=== PATIENT | male | born 1990 | race African-American/Black ===

== ENCOUNTER 2019-11-18 16:40 | Emergency (ER) | payer SELFPAY ==
--- NOTE | 2019-11-18 17:48 | ER ---
Nurse's Notes [facility] Name: Aftab Pedraza Age: 29 yrs Sex: Male : 1990 Arrival Date: 11/18/2019 Time: 16:43 Bed 13 Private MD: Diagnosis: Influenza due to certain identified influenza viruses Presentation: 11/18 16:50 Presenting complaint: Patient states: Fever, chills, body aches, dizziness, cough and sg blurred vision for about 1 week per pt mother, pt reports has not had an appetite and has been vomiting for 1 day. Transition of care: patient was not received from another setting of care. Onset of symptoms was November 18, 2019. Risk Assessment: Do you want to hurt yourself or someone else? Patient reports no desire to harm self or others. Initial Sepsis Screen: Does the patient meet any 2 criteria? HR > 90 bpm. Does the patient have a suspected source of infection? No. Patient's initial sepsis screen is negative. Care prior to arrival: None. 16:50 Method Of Arrival: Ambulatory sg 16:50 Acuity: DIGNA 3 sg Historical: - Allergies: 16:50 NKDA; sg - Home Meds: 16:50 None [Active]; sg - PMHx: 16:50 None; sg - PSHx: 16:50 None; sg - Immunization history:: Adult Immunizations up to date. - Social history:: Smoking status: Patient uses tobacco products, smokes two packs cigarettes per day. - Ebola Screening: : Patient negative for fever greater than or equal to 101.5 degrees Fahrenheit, and additional compatible Ebola Virus Disease symptoms Patient denies exposure to infectious person Patient denies travel to an Ebola-affected area in the 21 days before illness onset No symptoms or risks identified at this time. Screenin:00 Abuse screen: Denies threats or abuse. Denies injuries from another. Nutritional ca1 screening: No deficits noted. Tuberculosis screening: No symptoms or risk factors identified. Fall Risk None identified. Assessment: 17:00 General: Appears in no apparent distress. comfortable, Behavior is calm, cooperative, ca1 appropriate for age. General: Reports chills for fever for feeling ill for > 3 days. Pain: Complains of pain in all over Pain currently is 7 out of 10 on a pain scale. Pain began 2-3 days ago. Neuro: Level of Consciousness is awake, alert, obeys commands, Oriented to person, place, time, situation, Appropriate for age. Cardiovascular: Heart tones S1 S2 present Capillary refill < 3 seconds Patient's skin is warm and dry. Respiratory: Reports cough that is since 2-4 days Airway is patent Respiratory effort is even, unlabored, Respiratory pattern is regular, symmetrical, Breath sounds are clear bilaterally. GI: Abdomen is round non-distended, Bowel sounds present X 4 quads. Abd is soft and non tender X 4 quads. Reports diarrhea, nausea, vomiting. : No deficits noted. No signs and/or symptoms were reported regarding the genitourinary system. EENT: No deficits noted. No signs and/or symptoms were reported regarding the EENT system. Derm: Skin is intact, is healthy with good turgor, Skin is pink, warm \T\ dry. Musculoskeletal: Circulation, motion, and sensation intact. Capillary refill < 3 seconds, Range of motion: intact in all extremities. 17:52 Reassessment: Patient appears in no apparent distress at this time. Patient is alert, ca1 oriented x 3, equal unlabored respirations, skin warm/dry/pink. Vital Signs: 16:49 BP 131 / 96; Pulse 108; Resp 18; Temp 99.1; Pulse Ox 98% on R/A; Weight 131.54 kg; sg Height 6 ft. 1 in. (185.42 cm); Pain 6/10; 17:52 BP 141 / 81; Pulse 80; Resp 17 S; Pulse Ox 98% on R/A; ca1 16:49 Body Mass Index 38.26 (131.54 kg, 185.42 cm) sg Visual Acuity: 17:11 Left Eye Visual acuity 20/20, ; Right Eye Visual acuity 20/20, ; Both Eyes Visual ca1 acuity 20/20; Without Lenses; ED Course: 16:43 Patient arrived in ED. mr 16:49 Arm band placed on. sg 16:51 Triage completed. sg 16:53 Yesenia Stuart FNP-C [facility]. kb 16:53 Luis Miguel MD is Attending Physician. kb 17:00 No provider procedures requiring assistance completed. ca1 17:02 Supriya Dial, BEKAH is Primary Nurse. ca1 17:02 Flu Sent. [facility] 17:03 Patient has correct armband on for positive identification. Bed in low position. Call [facility] light in reach. Adult w/ patient. 17:03 Flu and/or RSV swab sent to lab. [facility] 17:43 Chest Pa And Lat (2 Views) XRAY In Process Unspecified. EDMS 17:54 Patient did not have IV access during this emergency room visit. 17:54 Patient did not have IV access during this emergency room visit. ca1 Administered Medications: No medications were administered Outcome: 17:47 Discharge ordered by . kb 17:54 Discharged to home ambulatory, with family. 17:54 Condition: stable 17:54 Discharge instructions given to patient, family, Instructed on discharge instructions, follow up and referral plans. medication usage, Demonstrated understanding of instructions, follow-up care, medications. 17:55 Patient left the ED. Signatures: Dispatcher [employer] EDIN Yesenia Stuart, AUTOMOBI[employer] BRAKES BONDER-C AUTOMOBILE BRAKES BONDER-Ckb Minor Lara, RN Kimber Tom Bess Meadows RN RN hb Martinez, Maria [facility] Supriya Dial RN RN ca1
--- NOTE | 2019-11-18 17:48 | EDPHYS ---
Physician Documentation [facility] Name: Aftab Pderaza Age: 29 yrs Sex: Male : 1990 Arrival Date: 11/18/2019 Time: 16:43 Bed 13 Private MD: ED Physician Luis Miguel HPI: 11/18 17:36 This 29 yrs old Black Male presents to ER via Ambulatory with complaints of Cough, kb Fever, Headache, Vision Problem, Dizziness. 17:36 The patient or guardian reports cough, flu symptoms, low-grade fever, myalgias. Onset: kb The symptoms/episode began/occurred 3 day(s) ago. Severity of symptoms: At their worst the symptoms were moderate, in the emergency department the symptoms are unchanged. Modifying factors: The symptoms are alleviated by nothing, the symptoms are aggravated by nothing. Associated signs and symptoms: Pertinent positives: fever, rhinorrhea, sore throat. The patient has not experienced similar symptoms in the past. The patient has not recently seen a physician. Historical: - Allergies: 16:50 NKDA; sg - Home Meds: 16:50 None [Active]; sg - PMHx: 16:50 None; sg - PSHx: 16:50 None; sg - Immunization history:: Adult Immunizations up to date. - Social history:: Smoking status: Patient uses tobacco products, smokes two packs cigarettes per day. - Ebola Screening: : Patient negative for fever greater than or equal to 101.5 degrees Fahrenheit, and additional compatible Ebola Virus Disease symptoms Patient denies exposure to infectious person Patient denies travel to an Ebola-affected area in the 21 days before illness onset No symptoms or risks identified at this time. ROS: 17:35 Neck: Negative for injury, pain, and swelling, Cardiovascular: Negative for chest pain, kb palpitations, and edema, Abdomen/GI: Negative for abdominal pain, nausea, vomiting, diarrhea, and constipation, Back: Negative for injury and pain, MS/Extremity: Negative for injury and deformity, Skin: Negative for injury, rash, and discoloration, Neuro: Negative for headache, weakness, numbness, tingling, and seizure. 17:35 Constitutional: Positive for body aches, chills, fatigue, fever, malaise. 17:35 ENT: Positive for rhinorrhea, sinus congestion. 17:35 Respiratory: Positive for cough, Negative for dyspnea on exertion, hemoptysis, orthopnea, pleurisy, shortness of breath, sputum production, wheezing. Exam: 17:35 Constitutional: This is a well developed, well nourished patient who is awake, alert, kb and in no acute distress. Head/Face: Normocephalic, atraumatic. Neck: Trachea midline, no thyromegaly or masses palpated, and no cervical lymphadenopathy. Supple, full range of motion without nuchal rigidity, or vertebral point tenderness. No Meningismus. Chest/axilla: Normal chest wall appearance and motion. Nontender with no deformity. No lesions are appreciated. Cardiovascular: Regular rate and rhythm with a normal S1 and S2. No gallops, murmurs, or rubs. Normal PMI, no JVD. No pulse deficits. Respiratory: Lungs have equal breath sounds bilaterally, clear to auscultation and percussion. No rales, rhonchi or wheezes noted. No increased work of breathing, no retractions or nasal flaring. Abdomen/GI: Soft, non-tender, with normal bowel sounds. No distension or tympany. No guarding or rebound. No evidence of tenderness throughout. Skin: Warm, dry with normal turgor. Normal color with no rashes, no lesions, and no evidence of cellulitis. MS/ Extremity: Pulses equal, no cyanosis. Neurovascular intact. Full, normal range of motion. Neuro: Awake and alert, GCS 15, oriented to person, place, time, and situation. Cranial nerves II-XII grossly intact. Motor strength 5/5 in all extremities. Sensory grossly intact. Cerebellar exam normal. Normal gait. 17:35 ENT: External ear(s): are unremarkable, Ear canal(s): are normal, TM's: are normal, Nose: is normal, Mouth: is normal, Posterior pharynx: Airway: normal, no evidence of obstruction, Tonsils: are normal in appearance, Uvula: normal, midline, erythema, that is mild. Vital Signs: 16:49 BP 131 / 96; Pulse 108; Resp 18; Temp 99.1; Pulse Ox 98% on R/A; Weight 131.54 kg; sg Height 6 ft. 1 in. (185.42 cm); Pain 6/10; 17:52 BP 141 / 81; Pulse 80; Resp 17 S; Pulse Ox 98% on R/A; ca1 16:49 Body Mass Index 38.26 (131.54 kg, 185.42 cm) Visual Acuity: 17:11 Left Eye Visual acuity 20/20, ; Right Eye Visual acuity 20/20, ; Both Eyes Visual ca1 acuity 20/20; Without Lenses; MDM: 16:53 Patient medically screened. kb 17:35 Data reviewed: vital signs, nurses notes. Data interpreted: Pulse oximetry: on room air kb is 98 %. Interpretation: normal. Counseling: I had a detailed discussion with the patient and/or guardian regarding: the historical points, exam findings, and any diagnostic results supporting the discharge/admit diagnosis, lab results, radiology results, the need for outpatient follow up, a family practitioner, to return to the emergency department if symptoms worsen or persist or if there are any questions or concerns that arise at home. 11/18 16:53 Order name: Flu; Complete Time: 17:32 kb 11/18 17:04 Order name: Strep; Complete Time: 17:46 kb 11/18 16:53 Order name: Visual Acuity; Complete Time: 17:16 kb 11/18 17:04 Order name: Chest Pa And Lat (2 Views) XRAY kb Administered Medications: No medications were administered Disposition: 11/18/19 17:47 Discharged to Home. Impression: Influenza due to certain identified influenza viruses. - Condition is Stable. - Discharge Instructions: Influenza, Adult, [id number]. - Medication Reconciliation Form, Thank You Letter, Antibiotic Education, Prescription Opioid Use, Work release form form. - Follow up: Emergency Department; When: As needed; Reason: Worsening of condition. Follow up: Private Physician; When: 2 - 3 days; Reason: Recheck today's complaints, Continuance of care, Re-evaluation by your physician. Addendum: 11/25/2019 07:25 Co-signature as Attending Physician, Luis Miguel MD I agree with the assessment and c sneed plan of care. Signatures: Dispatcher [employer] Yesenia Carrizales, VENEER CUTTER-C CAYLA-Minor [place] RN RN Luis Goel MD MD cha Baxter, Heather, BEKAH RN Corrections: (The following items were deleted from the chart) 11/18 17:55 17:47 11/18/2019 17:47 Discharged to Home. Impression: Influenza due to certain hb identified influenza viruses. Condition is Stable. Forms are Medication Reconciliation Form, Thank You Letter, Antibiotic Education, Prescription Opioid Use. Follow up: Emergency Department; When: As needed; Reason: Worsening of condition. Follow up: Private Physician; When: 2 - 3 days; Reason: Recheck today's complaints, Continuance of care, Re-evaluation by your physician. kb
--- NOTE | 2019-11-18 17:55 | RAD REPORT ---
EXAM DESCRIPTION: Hong Armstrong And Chele (2 Views)11/18/2019 5:41 pm CLINICAL HISTORY: Cough COMPARISON: None FINDINGS: 14 millimeter medial right lower lobe opacity Left lung appears clear The heart is normal size IMPRESSION: 14 millimeter medial right lower lobe opacity. This may represent a mild pneumonia. Fol low-up chest film in a couple weeks recommended for re-evaluation
[2019-11-18 18:21] VITALS: TEMP 99.1; O2SAT 98
[2019-11-18 18:22] VITALS: BP 141/81
== END 2019-11-18 17:55 | disposition home or self-care (01) ==
LOC: ER 16:40
DX: J10.1 Influenza due to other identified influenza virus with other respiratory manifestations (principal); F17.210 Nicotine dependence, cigarettes, uncomplicated
CPT/HCPCS: 71046; 87070; 87081; 87804; 99283

== ENCOUNTER 2020-04-19 12:43 | Emergency (ER) | payer SELFPAY ==
--- NOTE | 2020-04-19 13:46 | RAD REPORT ---
EXAM DESCRIPTION: RAD - Wrist Right 3 View - 04/19/2020 1:24 pm CLINICAL HISTORY: Right wrist pain status post injury FINDINGS: No fracture or dislocation is seen. If the patient continues to have symptoms to suggest a n occult fracture then a followup plain film series in 7 days would be recommended.
[2020-04-19 13:56] VITALS: BP 134/85; TEMP 97.6; O2SAT 96
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
== END 2020-04-19 13:45 | disposition home or self-care (01) ==
LOC: ER 12:43
DX: S63.501A Unspecified sprain of right wrist, initial encounter (principal); W50.0XXA Accidental hit or strike by another person, initial encounter; Y93.9 Activity, unspecified; Y92.9 Unspecified place or not applicable; F17.210 Nicotine dependence, cigarettes, uncomplicated
CPT/HCPCS: 99284

== ENCOUNTER 2021-07-16 14:52 | Emergency (ER) | payer SELFPAY ==
[2021-07-16 16:10] LABS: Basophils % 0.9 % (0-1.3); MPV 7.9 fL (7.6-11.3)
[2021-07-16 16:26] LABS: Absolute Lymphocytes (CBC) 1.7 K/uL (0.7-4.9); Hematocrit 45.2 % (39.6-49.0); Lymphocytes % 25.9 % (15.3-44.8); RBC Red Blood Cell Count 5.81 M/uL (4.33-5.43)
[2021-07-16 16:29] LABS: Protime INR 0.95
[2021-07-16 16:31] LABS: ALT/SGPT 53 U/L (12-78); AST/SGOT 26 U/L (15-37); Albumin 3.8 g/dL (3.4-5.0); Alkaline Phosphatase 75 U/L (45-117); BUN Blood Urea Nitrogen 17 mg/dL (7-18); Bicarbonate 28 mmol/L (21-32); Bilirubin Direct 0.1 mg/dL (0-0.2); Bilirubin Total 0.5 mg/dL (0.2-1.0); Creatine Phosphokinase 406 U/L (39-308); Glucose Level 97 mg/dL (74-106); NT PRO-BNP 20 pg/mL (<125); Potassium 4.1 mmol/L (3.5-5.1); Sodium Level 140 mmol/L (136-145); Troponin (Emerg Dept Use Only) < 0.02 ng/mL (0.0-0.045)
--- NOTE | 2021-07-16 16:47 | RAD REPORT ---
EXAM DESCRIPTION: Hong Single View07/16/2021 4:32 pm CLINICAL HISTORY: Weakness/ fatigue COMPARISON: 2019 FINDINGS: The lungs appear clear of acute infiltrate. The heart is normal size. Left lateral costop hrenic sulcus is not entirely included in the field view and is not evaluated IMPRESSION: No acute abnormalities displayed
[2021-07-16] MEDS ORDERED: NA CHLORIDE 0.9% 1,000 ML ONE (16:49)
--- NOTE | 2021-07-16 18:12 | EDPHYS ---
Physician Documentation [facility] Name: Aftab Pedraza Age: 30 yrs Sex: Male : 1990 Arrival Date: 07/16/2021 Time: 15:04 Bed 16 Private MD: ED Physician Vipul Cardenas HPI: 07/16 15:19 This 30 yrs old Black Male presents to ER via Unassigned with complaints of back pain, jmm cramping. 15:19 The patient presents with abdominal pain that is diffuse. Onset: The symptoms/episode jmm began/occurred just prior to arrival. The symptoms do not radiate. Associated signs and symptoms: Pertinent positives: nausea and vomiting. The symptoms are described as achy, crampy. Modifying factors: The symptoms are alleviated by nothing, the symptoms are aggravated by nothing. This is a 30-year-old male with a history of hypertension that presents emerge department with complaints of generalized muscle cramping, abdominal pain, nausea. Patient was outside at work when this occurred. Patient also states he is concerned he may have coronavirus due to exposure to coworker.. Historical: - Immunization history:: Client reports having NOT received the Covid vaccine. - Social history:: Smoking status: unknown. ROS: 15:19 Cardiovascular: Negative for chest pain, palpitations, and edema, Respiratory: Negative jmm for shortness of breath, cough, wheezing, and pleuritic chest pain. 15:19 Constitutional: Positive for body aches, fatigue. 15:19 Abdomen/GI: Positive for nausea. 15:19 Back: Positive for pain with movement. 15:19 All other systems are negative. Exam: 15:19 Constitutional: This is a well developed, well nourished patient who is awake, alert, jmm and in no acute distress. Head/Face: atraumatic. Eyes: EOMI, no conjunctival erythema appreciated ENT: Moist Mucus Membranes Neck: Trachea midline, Supple Chest/axilla: Normal chest wall appearance and motion. 15:19 Back: Normal ROM Skin: General appearance color normal MS/ Extremity: Moves all extremities, no obvious deformities appreciated, no edema noted to the lower extremities Neuro: Awake and alert, normal gait 15:19 Cardiovascular: Rate: normal, Rhythm: regular. 15:19 Respiratory: the patient does not display signs of respiratory distress, Respirations: normal, Breath sounds: are clear throughout. 15:19 Abdomen/GI: Inspection: obese Bowel sounds: normal, Palpation: soft, mild abdominal tenderness, in all quadrants. Vital Signs: 16:20 BP 156 / 66; Pulse 94; Resp 18; Temp 96.5; Pulse Ox 100% ; Weight 145.15 kg; Height 6 aj2 ft. 1 in. (185.42 cm); 16:20 Body Mass Index 42.22 (145.15 kg, 185.42 cm) aj2 MDM: 15:11 Patient medically screened. [facility] 18:10 Data reviewed: vital signs, nurses notes. Counseling: I had a detailed discussion with jimenez the patient and/or guardian regarding: the historical points, exam findings, and any diagnostic results supporting the discharge/admit diagnosis, lab results, the need for outpatient follow up, to return to the emergency department if symptoms worsen or persist or if there are any questions or concerns that arise at home. ED course: Patient is alert and nontoxic in appearance in the ER. I discussed all labs and imaging studies with the patient. Patient will follow up with their primary care provider. Patient understood and agrees with plan of care.. 07/16 15:18 Order name: Basic Metabolic Panel [facility] 07/16 15:18 Order name: CBC with Diff [facility] 07/16 15:18 Order name: LFT's [facility] 07/16 15:18 Order name: Magnesium [facility] 07/16 15:18 Order name: NT PRO-BNP [facility] 07/16 15:18 Order name: PT-INR [facility] 07/16 15:18 Order name: Troponin (emerg Dept Use Only) [facility] 07/16 15:18 Order name: CPK [facility] 07/16 15:18 Order name: Basic Metabolic Panel; Complete Time: 16:32 [facility] 07/16 15:18 Order name: CBC with Automated Diff; Complete Time: 16:33 [facility] 07/16 15:19 Order name: Liver (Hepatic) Function; Complete Time: 16:32 [facility] 07/16 15:19 Order name: Magnesium; Complete Time: 16:32 [facility] 07/16 15:19 Order name: NT PRO-BNP; Complete Time: 16:32 [facility] 07/16 15:18 Order name: XRAY Chest (1 view); Complete Time: 16:50 [facility] 07/16 15:18 Order name: EKG; Complete Time: 15:19 [facility] 07/16 15:18 Order name: Cardiac monitoring; Complete Time: 15:53 [facility] 07/16 15:18 Order name: EKG - Nurse/Tech; Complete Time: 15:53 [facility] 07/16 15:18 Order name: IV Saline Lock; Complete Time: 16:04 [facility] 07/16 15:18 Order name: Labs collected and sent; Complete Time: 16:04 [facility] 07/16 15:18 Order name: O2 Per Protocol; Complete Time: 15:53 [facility] 07/16 15:18 Order name: O2 Sat Monitoring; Complete Time: 15:53 [facility] 07/16 15:19 Order name: Protime (+INR); Complete Time: 16:35 [facility] 07/16 15:19 Order name: Troponin (Emerg Dept Use Only); Complete Time: 16:32 [facility] 07/16 15:19 Order name: Creatine Phosphokinase; Complete Time: 16:32 [facility] 07/16 18:11 Order name: SARS-COV-2 RT PCR; Complete Time: 18:11 EDMS Administered Medications: 16:00 Drug: NS 0.9% 1000 ml Route: IV; Rate: 1 bolus; Site: left antecubital; zb Disposition Summary: 07/16/21 18:11 Discharge Ordered Location: Home [facility] Condition: Stable [facility] Diagnosis - Dehydration [facility] Followup: jm - With: Private Physician - When: 2 - 3 days - Reason: Recheck today's complaints, Continuance of care, Re-evaluation by your physician Discharge Instructions: - Discharge Summary Sheet jm - Dehydration, Adult jm - Heat Exhaustion [facility] Forms: - Medication Reconciliation Form [facility] - Thank You Letter [facility] - Antibiotic Education jmm - Prescription Opioid Use [facility] Signatures: Dispatcher [employer] EDMS Tono Shafer PA PA jmm Brown, Zipporah, RN RN Amari Velasco Corrections: (The following items were deleted from the chart) 16:31 15:18 CBC with Automated Diff ordered. EDMS EDMS 17:02 15:19 CORONAVIRUS+MR.LAB.BRZ ordered. EDMS EDMS
--- NOTE | 2021-07-16 18:12 | ER ---
Nurse's Notes [facility] Name: Aftab Pedraza Age: 30 yrs Sex: Male : 1990 Arrival Date: 07/16/2021 Time: 15:04 Bed 16 Private MD: Diagnosis: Dehydration Presentation: 07/16 15:15 Onset of symptoms is unknown. ss 15:15 Acuity: DIGNA 3 ss 15:27 Chief complaint: Patient states: Patient request COVID testing. Reports he was exposed aj2 to droplets from an unknown person. Denies any other concerns \T\ thi s time. Coronavirus screen: Vaccine status: Patient reports being unvaccinated. Ebola Screen: No symptoms or risks identified at this time. Initial Sepsis Screen: Does the patient meet any 2 criteria? No. Patient's initial sepsis screen is negative. Does the patient have a suspected source of infection?. Risk Assessment: Do you want to hurt yourself or someone else? Patient reports no desire to harm self or others. 15:27 Method Of Arrival: Law Enforcement: Ramon HIGGINS aj2 Triage Assessment: 15:27 General: Appears in no apparent distress. well groomed, well nourished, Behavior is aj2 calm, uncooperative. Historical: - Immunization history:: Client reports having NOT received the Covid vaccine. - Social history:: Smoking status: unknown. Screenin:25 Abuse screen: Denies threats or abuse. Denies injuries from another. Nutritional aj2 screening: No deficits noted. Tuberculosis screening: No symptoms or risk factors identified. Fall Risk None identified. Assessment: 15:25 Pain: Denies pain. aj2 Vital Signs: 16:20 BP 156 / 66; Pulse 94; Resp 18; Temp 96.5; Pulse Ox 100% ; Weight 145.15 kg; Height 6 aj2 ft. 1 in. (185.42 cm); 16:20 Body Mass Index 42.22 (145.15 kg, 185.42 cm) aj2 ED Course: 15:04 Patient arrived in ED. tr6 15:08 Tono Shafer PA is PHCP. [facility] 15:08 Vipul Cardenas MD is Attending Physician. [facility] 15:24 Amari Mcpherson is Primary Nurse. aj2 15:25 No provider procedures requiring assistance completed. Patient did not have IV access aj2 during this emergency room visit. 15:27 Arm band placed on left wrist. aj2 15:30 PATIENT REFUSED MEDICAL TREATMENT. mh5 15:53 Patient has correct armband on for positive identification. Placed in gown. Bed in low mh5 position. Call light in reach. Side rails up X2. Warm blanket given. Pillow given. 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 Pulse ox on. NIBP on. 16:04 Troponin (emerg Dept Use Only) Sent. 5 16:04 PT-INR Sent. 5 16:04 NT PRO-BNP Sent. 5 16:04 Magnesium Sent. 5 16:04 LFT's Sent. 5 16:04 CPK Sent. 5 16:05 Basic Metabolic Panel Sent. 5 16:05 CBC with Diff Sent. 5 16:05 Initial lab(s) drawn, by ED staff, sent to lab. EKG done, by ED staff, reviewed by Tono Isabel PAREDES COVID swab sent to lab. 16:09 Inserted saline lock: 20 gauge. aj2 16:13 Patient did not have IV access during this emergency room visit. aj2 16:32 XRAY Chest (1 view) In Process Unspecified. EDMS 18:39 Triage completed. ss Administered Medications: 16:00 Drug: NS 0.9% 1000 ml Route: IV; Rate: 1 bolus; Site: left antecubital; zb Outcome: 18:11 Discharge ordered by . m 19:21 Condition: stable zb 19:21 Discharged to Law Enforcement zb 19:21 Discharge instructions given to police, Instructed on discharge instructions, follow up and referral plans. Demonstrated understanding of instructions, follow-up care. 19:22 Patient left the ED. zb Signatures: Dispatcher [employer] EDMS Tono Shafer PA PA jmm Smirch, Shelby, RN RN ss Martinez, Maria [facility] Karo Engel RN RN zb Ramnanan, Tiffany, RN RN Amari Stevenson aj2 Corrections: (The following items were deleted from the chart) 17:02 16:04 CORONAVIRUS+MR.LAB.BRZ drawn and sent. [address]
[2021-07-16 19:35] VITALS: BP 156/66; TEMP 96.5; O2SAT 100
== END 2021-07-16 19:22 | disposition home or self-care (01) ==
LOC: ER 14:52
DX: E86.0 Dehydration (principal); R11.2 Nausea with vomiting, unspecified; Z20.822 Contact with and (suspected) exposure to COVID-19
CPT/HCPCS: 36415; 71045; 80048; 80076; 82550; 83735; 83880; 84484; 85025; 85610; 93005; 99285; J7030; U0003